=== PATIENT | male | born 1945 | race Caucasian/White ===

== ENCOUNTER 2023-05-18 12:44 | Outpatient (OUT) | payer MEDICARE, SELFPAY ==
--- NOTE | 2023-05-18 17:39 | CONS_ITS ---
CONSULTATION DATE: ??05/18/2023 TO:? Luis Orantes M.D. HISTORY:? Patient presents today complaining of pain in his lower back, bilateral lower extremities.? Describes heaviness in his legs as well, especially when ambulating, and pain is rated again 5-7/10 in severity.? He reports the heaviness in his legs seems to improve with rest even after short periods of time.? He is able to ambulate further if he leans on a cart or has the ability to lean on a cart.? He denies any change in bowel and bladder habits or new sensorimotor changes in the lower extremities. EXAM:? Notable for patient having no clinical radiculopathy or myelopathy involving his lower extremities.? Patient did have depressed bipatellar reflex and weakness of his iliopsoas and quadriceps bilaterally. IMPRESSION:? Patient with chronic pain secondary to spinal stenosis, neurogenic claudication. RECOMMENDATIONS:? I have recommended caudal epidural steroid injection with advancement of catheter to the L5-S1 level under fluoroscopic guidance.? I have refilled his baclofen and started him on Zonegran 50 mg at h.s.? I have also requested he consider consultation with the spine surgeon, and we have referred him to [facility] for evaluation of the same.? As part of providing excellent, safe, comprehensive care, the following was completed at our patient's visit: 1. A medication reconciliation and review to ensure accurate knowledge of current/active medications, including asking our patients to inform us about any gykj-meb-yhuupuv medications or herbal remedies/nutritional supplements/alternative remedies. 2. A review to specifically ensure our patients have had annual screening for: elevated body mass index (BMI, see intake chart for exact total), tobacco use, screening for depression, and screening for unhealthy alcohol use.? When screening is concerning, patients are provided with education and the specific recommendation to discuss the concerning health issue and treatment options with their primary care provider. CRISTIANO
== END 2023-05-18 12:45 | disposition home or self-care (01) ==
LOC: PM 12:44
PROVIDERS: PCP Family Medicine; Visit Provider Anesthesiology Pain Medicine
DX: G89.29 Other chronic pain (principal); M48.00 Spinal stenosis, site unspecified
CPT/HCPCS: G0463

== ENCOUNTER 2023-06-17 08:48 | Day surgery (SDC) | payer MEDICARE, SELFPAY ==
[2023-06-17 09:03] VITALS: BP 117/56; PULSE 89; RESP 14; TEMP 36.1; O2SAT 99
[2023-06-17 09:42] VITALS: BP 140/65; PULSE 90; RESP 20; O2SAT 95
[2023-06-17] MEDS: 0.9 % SODIUM CHLORIDE 10 ML SYRINGE - SALINE FLUSH 2 ML INJ (09:43)
[2023-06-17] MEDS: IOHEXOL 240 MG/ML - 10 ML VIAL INJ (09:43)
[2023-06-17] MEDS: BUPIVACAINE HCL 0.25% PF 25 MG/10 ML VIAL 2 ML INJ (09:43)
[2023-06-17] MEDS: METHYLPREDNISOLONE ACETATE 80 MG/ML VIAL INJ (09:44)
[2023-06-17] MEDS: LIDOCAINE HCL 2% PF 100 MG/5 ML VIAL 3 ML INJ (09:44)
[2023-06-17 09:45] VITALS: BP 147/66; PULSE 88; O2SAT 96
--- NOTE | 2023-06-17 11:30 | P.ON_ITS ---
Date of procedure: 06/17/23 Pre-op diagnosis: lumbar stenosis Post-op diagnosis: same as pre-op Procedure: Caudal Epidural Steroid Injection With catheter advancement Solution used for the injection is Marcaine 0.25% Depo-Medrol 80 mg total of 5ml Omnipaque 3cc,3ml total, 1ml was used for injection to confirm needle tip placement and catheter tip placement within the epidural space. catheter was removed with the tip intact. Anesthesia: local anesthesia using 2% lidocaine, total no more than 5 mL. Timeout process compliant After obtaining informed consent .the patient was brought to the procedure room .placed in the prone position . the area was prepped and draped in a sterile fashion utilizing betadine. 25 gauge needle was used to create a skin wheal over the sacral hiatus identified under fluoroscopy. 17 gauge touhy needle was inserted over the anesthetized area and directed to the [place] hiatus under fluoroscopic guidance . after piercing the sacrococcygeal ligament. Confirmation of needle tip placement within the epidural space was accomplished with injection of contrast solution. epidural catheter was advanced to the L5 level .catheter placement confirmed with injection of contrast solution . the steroid solution was then injected .needle and catheter was removed post procedurally. patient transferred to recovery area in stable condition. Discharged home after meeting criteria. Anesthesia: Local Surgeon: Rebecca Flaherty Condition: stable
== END 2023-06-17 09:49 | disposition home or self-care (01) ==
LOC: SURGOUT 08:48
PROVIDERS: PCP Family Medicine; Visit Provider Anesthesiology Pain Medicine
DX: M48.061 Spinal stenosis, lumbar region without neurogenic claudication (principal); M54.16 Radiculopathy, lumbar region
CPT/HCPCS: 62323; J1040; Q9966

== ENCOUNTER 2023-11-03 16:26 | Emergency (ER) | payer MEDICARE, SELFPAY ==
[2023-11-03] VITALS (22 sets, daily range): BP systolic 121–166; BP diastolic 53–96; PULSE 93–108; RESP 14–23; TEMP 36.9; O2SAT 95–100; BMI 27.4
--- NOTE | 2023-11-03 16:35 | CT_ITS ---
[address] [address] Patient Name: GARTH HOU MRN: [id number] date: 1945 Sex: M Assigned Patient Location: ER Current Patient Location: ER Accession/Order Number: [id number] Exam Date: 11/03/2023 17:42 Report Date: 11/03/2023 19:10 At the request of: HOMER AVERY Procedure: CT angio chest EXAMINATION: CT angio chest, 11/03/2023 2:42 PM PST HISTORY: PE, hx dvt, chest pain COMPARISON: None. TECHNIQUE: CT angiogram of the chest (per pulmonary embolus protocol) with contrast. Coronal and sagittal 3D MIP rendered images were created. ALARA Utilization: Dose reduction technique was used including one or more of the following: automated exposure control, iterative reconstruction technique, adjustment of mA and kV according patient size and/or scan done according to ALARA (exposure dose as low as reasonably achievable). FINDINGS: CTA: No evidence of pulmonary emboli. LUNGS: Moderate to large left pleural effusion. Small right pleural effusion. Pulmonary vascular congestion. AIRWAYS: Partial atelectatic collapse of the left lower and upper lobes . Central airways are patent. PLEURA: As above. MEDIASTINUM AND ARA: Mildly enlarged lymph nodes, likely reactive. HEART AND PERICARDIUM: No significant finding. VESSELS: As above. CHEST WALL: No significant finding. NECK BASE: No significant finding. UPPER ABDOMEN: Heterogeneous mixed lytic and sclerotic appearance of the osseous structures diffusely. BONES: No significant finding. CT/CT angio chest IMPRESSION: No evidence of pulmonary emboli. Moderate to large left pleural effusion. Small right pleural effusion. Pulmonary vascular congestion. Diffuse osseous abnormalities suggesting metastatic disease or other infiltrative process. Indeterminate mild mediastinal adenopathy. Electronically authenticated by: BRADLY TRACY Date: 11/03/2023 19:10
--- NOTE | 2023-11-03 16:35 | ECG_ITS ---
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
--- NOTE | 2023-11-03 16:52 | ED_ITS ---
HPI - General Adult General Chief complaint: Shortness of Breath/Dyspnea Stated complaint: shortness of breath/ chest pain Time Seen by Provider: 11/03/23 16:35 Source: patient Mode of arrival: walk-in Limitations: no limitations History of Present Illness HPI narrative: Patient is a 78-year-old male treated by hematology/oncology for myelofibrosis referred to the emergency department from his oncology office for bilateral upper chest pain and shortness of breath with laying flat for the last 4 to 5 days. He has no chest pain at this time, he states he feels as though he cannot take a deep breath, this is worse with laying flat. He has chronic lower extremity swelling that is not worse or different today. He started a new medication for myelofibrosis on October 18, his oncology office referred him to the ER because a potential side effect of this medication is thrombosis and they were concerned about ruling out PE. Patient has a history of DVT several years ago, he was taken off of his Eliquis because he was having chronic nosebleeds. He has not had any fevers. He has had a cough with mild sputum production. Related Data Home Medications Medication Instructions Recorded Confirmed OMEGA 3 DAILY 05/18/23 allopurinol 100 mg tablet 100 mg PO DAILY 05/18/23 06/17/23 atorvastatin 40 mg tablet (Lipitor) 40 mg PO QPM 05/18/23 06/17/23 baclofen 10 mg tablet 10 mg PO BID 05/18/23 06/17/23 finasteride 5 mg tablet (Proscar) 5 mg PO DAILY 05/18/23 06/17/23 levothyroxine 75 mcg PO DAILY 05/18/23 06/17/23 lisinopril 20 1 tab PO DAILY 05/18/23 06/17/23 mg-hydrochlorothiazide 25 mg tablet multivitamin with minerals-folic 1 tab PO DAILY 05/18/23 06/17/23 acid 120 mcg chewable tablet (Centrum Adult 50 Plus Fresh-Fruity) pentoxifylline 400 mg 400 mg PO BID 05/18/23 06/17/23 tablet,extended release tamsulosin 0.4 mg capsule (Flomax) 0.4 mg PO DAILY 05/18/23 06/17/23 Allergies Allergy/AdvReac Type Severity Reaction Status Date / Time No Known Drug Allergies Allergy Verified 06/17/23 08:59 Review of Systems 2 ROS Constitutional Denies: fever or chills Ears, nose, mouth, and throat Denies: throat pain Cardiovascular Reports: chest pain Respiratory Reports: shortness of breath and cough; Denies: wheezing Gastrointestinal Denies: abdominal pain, nausea or vomiting Musculoskeletal Reports: extremity swelling; Denies: back pain or neck pain Integumentary/Breast Denies: rash Neurological Denies: headache Endocrine Denies: excessive urination Hematologic/Lymphatic Denies: easy bruising PFSH PFSH Medical History (Updated 11/03/23 @ 20:01 by MOMO Apple) Anemia ?D64.9 - Anemia, unspecified (ICD-10) Low testosterone in male ?R79.89 - Other specified abnormal findings of blood chemistry (ICD-10) Surgical History (Updated 06/01/23 @ 10:41 by Raven Devi RN) History of surgery on lower extremity ?Z98.890 - Other specified postprocedural states (ICD-10) Previous back surgery ?Z98.890 - Other specified postprocedural states (ICD-10) Social History Smoking status: Former smoker Exam Narrative Exam Narrative: Gen.: Awake, alert, in no distress Head: Normocephalic, atraumatic ENT: Moist mucous membranes Respiratory: No respiratory distress, lungs clear bilaterally; no wheezing or rhonchi Cardio: Regular rate and rhythm Extremities: Moves extremities equally, minimal pedal edema that is nonpitting Psych: Normal mood and affect Neuro: No focal neuro deficit Skin: Warm, dry, intact Constitutional Vital Signs, click to edit/add: Last Vital Signs Temp 98.5 F 11/03/23 16:30 Pulse 103 H 11/03/23 20:53 Resp 23 11/03/23 20:53 BP 166/82 H 11/03/23 20:50 Pulse Ox 99 11/03/23 20:48 O2 Del Method Room Air 11/03/23 16:30 Course Vital Signs Vital signs: Vital Signs Temperature 98.5 F 11/03/23 16:30 Pulse Rate 108 H 11/03/23 16:30 Respiratory Rate 20 11/03/23 16:30 Blood Pressure 150/55 H 11/03/23 16:30 Pulse Oximetry 98 11/03/23 16:30 Oxygen Delivery Method Room Air 11/03/23 16:30 Temperature 98.5 F 11/03/23 16:30 Pulse Rate 103 H 11/03/23 20:53 Respiratory Rate 23 11/03/23 20:53 Blood Pressure 166/82 H 11/03/23 20:50 Pulse Oximetry 99 11/03/23 20:48 Oxygen Delivery Method Room Air 11/03/23 16:30 Medical Decision Making MDM Narrative Medical decision making narrative: Patient found to have stable vital signs in the ER, no EKG changes. He declined any medication for pain. Lab studies show low platelet count with elevated white blood cell count, consistent with his hematology disorder, he was also found to have elevated BNP, significantly elevated troponin. CT of the chest shows the patient has a large left-sided pleural effusion with pulmonary vascular congestion and no evidence of PE. Patient treated for non-STEMI, heparin was ordered to be started and I discussed transfer with Dr. Garsia at [facility] who accepted the patient for transfer but requested we hold off on heparin until discussion with cardiology due to the patient's low platelet count. Heparin is deferred at this time while awaiting a phone call from [facility] heart on-call. Patient to be transferred to [facility] for further evaluation and treatment. Stable at this time. I discussed the case with Dr. Bowen who requested Lovenox over heparin, patient will be treated with 80 mg of heparin subcu at his recommendation and transferred to [facility]. Medical Records Medical records reviewed: Yes I reviewed the patient's medical records Lab Data Lab results reviewed: Yes I reviewed the patient's lab results Labs: Lab Results 11/03/23 11/03/23 11/03/23 Range/Units 16:43 17:00 17:06 WBC 47.6 H* (4.0-11.0) 10^3/uL RBC 3.84 L (4.70-6.10) 10^6/uL Hgb 11.3 L (14.0-18.0) g/dL Hct 37.1 L (42.0-54.0) % MCV 96.6 H (80.0-94.0) fL MCH 29.4 (25.9-34.0) pg MCHC 30.5 (29.9-35.2) g/dL RDW 21.3 H (11.0-15.0) % Plt Count 48 L (150-450) 10^3/uL Seg Neuts % (Manual) 67.0 Band Neutrophils % 9.0 H (0-5) % Lymphocytes % (Manual) 6.0 L (20.5-60.0) % Monocytes % (Manual) 5.0 (1.7-12.0) % Eosinophils % (Manual) 0.0 L (0.9-7.0) % Basophils % (Manual) 3.0 H (0.2-2.0) % Metamyelocytes % 6.0 Myelocytes % 4.0 Neutrophils # (Manual) 31.89 H (1.4-6.5) 10^3/uL Band Neutrophils # 4.3 H (0.0-0.3) 10^3/uL Lymphocytes # (Manual) 2.85 (1.20-3.80) 10^3/uL Monocytes # (Manual) 2.38 H (0.30-0.80) 10^3/uL Eosinophils # (Manual) 0.00 (0.00-0.70) 10^3/uL Basophils # (Manual) 1.42 H (0.00-0.10) 10^3/uL Metamyelocytes # 2.85 Myelocytes # 1.90 Nucleated RBCs 12 Anisocytosis 2+ PT 11.8 H (9.0-11.6) sec INR 1.12 VBG pH 7.406 (7.330-7.430) VBG pCO2 42.3 (40.0-52.0) mmHg Sodium 141 (136-145) mmol/L Potassium 3.6 (3.5-5.1) mmol/L Chloride 104 (98-107) mmol/L Carbon Dioxide 25.1 (21.0-32.0) mmol/L Anion Gap 15.5 BUN 19.0 H (7.0-18.0) mg/dL Creatinine 1.14 (0.70-1.30) mg/dL Est GFR ( Amer) >60 (>=60) Est GFR (Non-Af Amer) >60 (>=60) BUN/Creatinine Ratio 16.7 Glucose 98 (74-106) mg/dL Lactate 0.8 (0.4-2.0) mmol/L Calcium 9.5 (8.5-10.1) mg/dL Magnesium 1.9 (1.8-2.4) mg/dL Total Bilirubin 2.2 H (0.2-1.0) mg/dL AST 25 (15-37) U/L ALT 20 (16-63) U/L Alkaline Phosphatase 107 (46-116) U/L Troponin I High Sens 847.1 H* (4.0-76.1) pg/mL NT-Pro-B Natriuret Pep 5922.0 H* (<=1800.0) pg/mL Total Protein 7.4 (6.4-8.2) g/dL Albumin 3.5 (3.4-5.0) g/dL Globulin 3.9 g/dL Albumin/Globulin Ratio 0.9 SARS-CoV-2 (PCR) Negative (NEGATIVE) SARS-CoV-2 RNA (TOMMIE) Not detected (NOT DETECTE) Imaging Data CT scan - chest: Attestation: I have reviewed the pertinent imaging results. Radiologist's impression: Procedure: CT angio chest EXAMINATION: CT angio chest, 11/03/2023 2:42 PM PST HISTORY: PE, hx dvt, chest pain COMPARISON: None. TECHNIQUE: CT angiogram of the chest (per pulmonary embolus protocol) with contrast. Coronal and sagittal 3D MIP rendered images were created. ALARA Utilization: Dose reduction technique was used including one or more of the following: automated exposure control, iterative reconstruction technique, adjustment of mA and kV according patient size and/or scan done according to ALARA (exposure dose as low as reasonably achievable). FINDINGS: CTA: No evidence of pulmonary emboli. LUNGS: Moderate to large left pleural effusion. Small right pleural effusion. Pulmonary vascular congestion. AIRWAYS: Partial atelectatic collapse of the left lower and upper lobes . Central airways are patent. PLEURA: As above. MEDIASTINUM AND ARA: Mildly enlarged lymph nodes, likely reactive. HEART AND PERICARDIUM: No significant finding. VESSELS: As above. CHEST WALL: No significant finding. NECK BASE: No significant finding. UPPER ABDOMEN: Heterogeneous mixed lytic and sclerotic appearance of the osseous structures diffusely. BONES: No significant finding. IMPRESSION: No evidence of pulmonary emboli. Moderate to large left pleural effusion. Small right pleural effusion. Pulmonary vascular congestion. Diffuse osseous abnormalities suggesting metastatic disease or other infiltrative process. Indeterminate mild mediastinal adenopathy. Electronically authenticated by: BRADLY TRACY Date: 11/03/2023 19:10 ECG Data Attestation: I personally reviewed and interpreted this ECG as follows: (Normal sinus rhythm at a rate of 99, no acute ST elevation or ectopy. EKG reviewed by attending physician) Discharge Plan Discharge Chief Complaint: Shortness of Breath/Dyspnea Clinical Impression: Non-ST elevated myocardial infarction (non-STEMI), Pleural effusion, Chest pain Patient Disposition: [facility] Time of Disposition Decision: 19:00 Discharge Location: [facility] Discharge Date/Time: 11/03/23 21:02
[2023-11-03 17:07] LABS: Hematocrit 37.1 % (42.0-54.0); Hemoglobin 11.3 g/dL (14.0-18.0); Mean Corpuscular HGB Conc 30.5 g/dL (29.9-35.2); Mean Corpuscular Hemoglobin 29.4 pg (25.9-34.0); Mean Corpuscular Volume 96.6 fL (80.0-94.0); Platelet Count 48 10^3/uL (150-450); Red Blood Count 3.84 10^6/uL (4.70-6.10); Red Cell Distribution Width 21.3 % (11.0-15.0)
[2023-11-03 17:16] LABS: PCO2 VBG 42.3 mmHg (40.0-52.0); pH VBG 7.406 (7.330-7.430)
[2023-11-03 17:25] LABS: SARS-CoV-2 Ag NEGATIVE (NEGATIVE)
[2023-11-03 17:26] LABS: Lactate/Lactic Acid 0.8 mmol/L (0.4-2.0)
[2023-11-03 17:28] LABS: INR 1.12; Prothrombin Time 11.8 sec (9.0-11.6)
[2023-11-03 17:30] LABS: Alanine Aminotransferase 20 U/L (16-63); Albumin Globulin Ratio 0.9; Albumin Level 3.5 g/dL (3.4-5.0); Alkaline Phosphatase 107 U/L (46-116); Anion Gap 15.5; Aspartate Amino Transferase 25 U/L (15-37); BUN Creatinine Ratio 16.7; Bilirubin Total 2.2 mg/dL (0.2-1.0); Calcium 9.5 mg/dL (8.5-10.1); Carbon Dioxide 25.1 mmol/L (21.0-32.0); Chloride 104 mmol/L (98-107); Estimated GFR (African America >60 (>=60); Estimated GFR (Non-African Ame >60 (>=60); Globulin 3.9 g/dL; Glucose 98 mg/dL (74-106); Magnesium 1.9 mg/dL (1.8-2.4); Potassium 3.6 mmol/L (3.5-5.1); Sodium 141 mmol/L (136-145); Total Protein 7.4 g/dL (6.4-8.2)
[2023-11-03 17:32] LABS: Troponin I High Sensitivity 847.1 pg/mL (4.0-76.1)
[2023-11-03 17:33] LABS: White Blood Count 47.6 10^3/uL (4.0-11.0)
[2023-11-03 17:46] LABS: Lymphocytes Absolute Manual 2.85 10^3/uL (1.20-3.80); Monocytes Absolute Manual 2.38 10^3/uL (0.30-0.80); Segmented Neut Absolute Manual 31.89 10^3/uL (1.4-6.5)
[2023-11-03 17:47] LABS: Anisocytosis 2+; Band Neutrophils Absolute 4.3 10^3/uL (0.0-0.3); Basophils Abs Manual 1.42 10^3/uL (0.00-0.10); Metamyelocytes Absolute Manual 2.85; Nucleated Red Blood Cells 12
[2023-11-03] MEDS: MORPHINE SULFATE 4 MG/ML VIAL IV (18:45)
[2023-11-03] MEDS: ONDANSETRON PF 4 MG/2 ML VIAL IV (19:04)
[2023-11-03] MEDS: ENOXAPARIN SODIUM 80 MG/0.8 ML SYRINGE SUBQ (20:46)
[2023-11-04 14:28] LABS: SARS-CoV-2 NAA NOT DETECTED (NOT DETECTE)
== END 2023-11-03 21:02 | disposition short-term general hospital (02) ==
PROVIDERS: Physician Assistant; Emergency Provider Emergency Medicine; PCP Family Medicine
DX: I21.4 Non-ST elevation (NSTEMI) myocardial infarction (principal); R07.9 Chest pain, unspecified; R06.02 Shortness of breath; D75.81 Myelofibrosis; J90 Pleural effusion, not elsewhere classified; Z86.718 Personal history of other venous thrombosis and embolism; Z79.899 Other long term (current) drug therapy; M79.89 Other specified soft tissue disorders; Z87.891 Personal history of nicotine dependence
CPT/HCPCS: 36415; 71275; 80053; 82800; 83605; 83735; 83880; 84484; 85007; 85027; 85610; 87040; 87635; 87811; 93005; 96372; 96374; 96375; 99285; Q9967